=== PATIENT | female | born 1985 | race Two or more races ===

== ENCOUNTER 2023-10-10 15:10 | Emergency (ER) | payer OTHER ==
[~2023-10-10] VITALS: Ht 157.5 cm; Wt 65.8 kg
[2023-10-10] MEDS ORDERED: DEXAMETHASONE SODIUM PHOSPHATE 4 MG/ML VIAL IM ONE (17:30)
[2023-10-10] MEDS ORDERED: ACETAMINOPHEN 500 MG GEL..CAP PO ONE (17:30)
[2023-10-10] MEDS ORDERED: ORPHENADRINE CITRATE 30 MG/ML AMPUL IM ONE (17:30)
== END 2023-10-10 21:00 | disposition home or self-care (01) ==
LOC: ER 15:10
DX: M75.31 Calcific tendinitis of right shoulder (principal); Z88.6 Allergy status to analgesic agent

== ENCOUNTER → 2023-10-11 | Emergency (ER) | payer OTHER | END | disposition home or self-care (01) | LOC: ER 21:11 | DX: M75.31 Calcific tendinitis of right shoulder (principal); Z88.6 Allergy status to analgesic agent ==